=== PATIENT | male | born 1965 | race Caucasian/White ===

== ENCOUNTER → 2016-08-09 | Outpatient (CLI) | payer MEDICAID ==
[~2016-08-09] MED LIST: ASPIRIN 81MG TA81 MG PO; CELEXA20 MG PO; CIPRO 500MG TA500 MG PO; ETODOLAC400 MG PO; FLEXERIL10 MG PO; FLOMAX 0.4MG C0.4 MG PO; GABAPENTIN600 MG PO; HYDROCHLOROTHIA25 M1 PO; IBUPROFEN800 MG PO; LISINOPRIL 10MG10 MG PO; LISINOPRIL 20MG20 MG PO; PANTOPRAZOLE SO40 MG PO; PERCOCET 10 MG1 EACH PO; PERCOCET1 TAB PO; PHENERGAN25 M3 PO; TRAMADOL 50MG T50 M1 PO; ZANTAC 150150 MG PO; ZOCOR20 MG PO
[2016-08-09 17:21] LABS: AMPHETAMINES/METAMPHETAMINES NEGATIVE ng/mL (<1000)
== END ==
LOC: LAB 16:15
PROVIDERS: Emergency Medicine
DX: Z79.899 Other long term (current) drug therapy (principal)

== ENCOUNTER 2016-11-12 22:16 | Emergency (ER) | payer MEDICAID ==
[~2016-11-12] VITALS: Ht 185.4 cm; Wt 102.5 kg
[~2016-11-12 22:16] MED LIST changes: +LISINOPRIL HCTZ1 TAB PO; +NORCO 325 MG-51 TAB PO
[2016-11-12] MEDS ORDERED: LISINOPRIL 10MG10 MG PO (22:26)
--- OUTSIDE RECORDS SUMMARY | 2016-11-12 22:45 | External Medical Summary Rpt ---
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 Auto Basophi 03-27-2 0.3 % 0.1-2.0 complet ls Fr 013 ed Bld 06:10 Auto Granulo 03-27-2 6.4 1.3-8.0 complet cytes # 013 K/mm3 ed Bld 06:10 Auto Lymphoc 03-27-2 1.5 0.7-4.5 complet ytes Fr 013 K/mm3 ed Bld 06:10 Auto Monocyt 03-27-2 0.6 0.1-1.0 complet es # 013 K/mm3 ed Bld 06:10 Auto Eosinop 03-27-2 0.1 0.0-0.4 complet hil # 013 K/mm3 ed Bld 06:10 Auto Basophi 03-27-2 0.0 0-0.2 complet ls # 013 K/MM3 ed Bld 06:10 Auto URINALYSIS/COMPLETE (08-18-2012 17:55) URINE 03-26-2 YELLOW YELLOW complet COLOR 013 ed 17:55 URINE 03-26-2 Sl CLEAR complet APPEARA 013 Cloudy ed NCE 17:55 URINE 03-26-2 NEGATIV NEG complet GLUCOSE 013 E ed - 17:55 DIPSTIC K URINE 03-26-2 NEGATIV NEG complet BILIRUB 013 E ed IN - 17:55 DIPSTIC K URINE 03-26-2 NEGATIV NEG complet KETONE 013 E mg/dL ed 17:55 URINE 03-26-2 Greater 1.005-1 complet SPECIFI 013 than .030 ed C 17:55 or GRAVITY equal to 1.030 URINE 03-26-2 NEGATIV NEG complet BLOOD 013 E ed 17:55 URINE 03-26-2 6.0 UNK 5.0-8.5 complet PH 013 ed 17:55 URINE 03-26-2 TRACE NEG complet PROTEIN 013 mg/dL ed - 17:55 DIPSTIC K URINE 03-26-2 0.2 NEG complet UROBILI 013 E.U./dL ed NOGEN - 17:55 DIPSTIC K URINE NEGATIV NEG complet NITRATE 013 E ed - 17:55 DIPSTIC K URINE NEGATIV NEG complet LEUK 013 E ed ESTERAS 17:55 E URINE 2+ NONE complet CALCIUM 013 #/hpf ed 17:55 OXALATE CRYSTAL S COMPREHENSIVE METABOLIC PANEL (08-18-2012 17:45) Glucose 105 74-106 complet 013 mg/dL ed Bld-mCn 17:45 c BUN 14 7-18 complet Bld-mCn 013 mg/dL ed c 17:45 Creat 1.0 0.8-1.3 complet SerPl-m 013 mg/dL ed Cnc 17:45 ESTIMAT 130 50-200 complet ED 013 ML/MIN ed CREATIN 17:45 INE CLEARAN CE GFR 80 Greater complet (ESTIMA 013 ML/MIN than ed NOEL) 17:45 60 Sodium 141 136-145 complet SerPl-s 013 mmoL/L ed Cnc 17:45 Potassi 3.6 3.5-5.1 complet um 013 mmoL/L ed SerPl-s 17:45 Cnc Chlorid 104 98-107 complet e 013 mmoL/L ed SerPl-s 17:45 Cnc CO2 26 21.0-32 complet SerPl-s 013 mmoL/L .0 ed Cnc 17:45 Calcium 9.2 8.5-10. complet 013 mg/dL 1 ed SerPl-m 17:45 Cnc Prot 08-18-2 8.1 6.4-8.2 complet SerPl-m 013 gm/dL ed Cnc 17:45 Albumin 08-18-2 4.3 3.4-5.0 complet 013 gm/dL ed SerPl-m 17:45 Cnc Globuli 08-18-2 3.8 1.3-3.2 complet n 013 gm/dL ed Ser-mCn 17:45 c Albumin 1.1 UNK 1.1-1.8 complet /Glob 013 ed SerPl-m 17:45 Rto Bilirub 0.4 0.2-1.0 complet 013 mg/dL ed SerPl-m 17:45 Cnc AST 20 U/L 15-37 complet SerPl-c 013 ed Cnc 17:45 ALT 52 U/L 30-65 complet SerPl-c 013 ed Cnc 17:45 ALP 85 U/L 50-136 complet SerPl-c 013 ed Cnc 17:45 Amylase SerPl-cCnc (08-18-2012 17:45) Amylase 72 U/L 25-115 complet 013 ed SerPl-c 17:45 Cnc LIPASE (08-18-2012 17:45) LIPASE 351 U/L 73-393 complet 013 ed 17:45 PROTIME/INR (08-18-2012 17:45) PROTHRO 08-18-2 10.1 9.8-11. complet MBIN 013 SECONDS 0 ed TIME 17:45 INR Bld 0.97 0.9-1.1 complet 013 UNK ed 17:45 CBC with AUTO DIFF (08-18-2012 17:45) WBC # 08-18-2 12.7 4.8-10. complet Bld 013 K/MM3 8 ed Auto 17:45 RBC # 08-18-2 4.98 4.6-6.2 complet Bld 013 M/mm3 ed Auto 17:45 Hgb 08-18-2 15.5 14.1-18 complet Bld-mCn 013 g/dL .0 ed c 17:45 Hct Fr 45.9 % 42.0-52 complet Bld 013 .0 ed 17:45 MCV RBC 08-18-2 92.2 fl 82.2-97 complet 013 .8 ed 17:45 MCH RBC 08-18-2 31.2 pg 27-31.2 complet Qn 013 ed Auto 17:45 MEAN 33.8 31.8-35 complet CORPUSC 013 g/dl .4 ed ULAR 17:45 HGB CONC RDW RBC 08-18-2 13.5 % 11.5-17 complet Auto 013 .5 ed 17:45 Platele 330 142-424 complet t Bld 013 K/mm3 ed Ql 17:45 Manual MEAN 08-18-2 7.1 fl 7.4-10. complet PLATELE 013 4 ed T 17:45 VOLUME Granulo 03-26-2 76.9 % 37.0-80 complet cytes 013 .0 ed Fr Bld 17:45 Auto LYMPH % 03-26-2 16.6 % 10-50 complet 013 ed 17:45 Monocyt 03-26-2 4.9 % 1.7-9.3 complet es Fr 013 ed Bld 17:45 Auto Eosinop 03-26-2 1.2 % 0.1-12. complet hil Fr 013 0 ed Bld 17:45 Auto Basophi 03-26-2 0.4 % 0.1-2.0 complet ls Fr 013 ed Bld 17:45 Auto Granulo 03-26-2 9.8 1.3-8.0 complet cytes # 013 K/mm3 ed Bld 17:45 Auto Lymphoc 03-26-2 2.1 0.7-4.5 complet ytes Fr 013 K/mm3 ed Bld 17:45 Auto Monocyt 03-26-2 0.6 0.1-1.0 complet es # 013 K/mm3 ed Bld 17:45 Auto Eosinop 03-26-2 0.2 0.0-0.4 complet hil # 013 K/mm3 ed Bld 17:45 Auto Basophi 03-26-2 0.1 0-0.2 complet ls # 013 K/MM3 ed Bld 17:45 Auto Procedures Procedure DOS Code Location Performer Comment DRUG TEST 31560 [facility] QU[facility] DIR [facility] INC OPTICAL OBS PER DAY DRUG TEST 23443 BO [facility]V [facility] QUAL DIR INC INC OPTICAL OBS PER DAY MRI 94147 [place] [facility] SPINAL 7 MEDICAL CANAL IMAGING LUMBAR ASS W/O CONTRAST MATERIAL 3D 46515 [place] [facility] RENDERING 7 MEDICAL W/INTERP IMAGING & ASS POSTPROCE SS SUPERVISI ON DRUG TEST 84153 BO [facility]IAN[facility] PRSMV [facility] QUAL DIR INC INC OPTICAL OBS PER DAY DRUG TEST 80629 BO [facility] PRSMV 7 [facility] QUAL DIR INC INC OPTICAL OBS PER DAY DRUG TEST 62681 BO MYERSON PRSMV 7 [facility] QU[place] [address] TAB BARTH ABDOMEN & 6 [facility] PELVIS [facility] W/CONTRAS T MATERIAL LOCM Q9967 TAB BARTH 300-399 6 [facility] MG/ML [facility] IODINE CONCENTRA TION PER ML COLLECTIO 88383 TAB [facility]TH N VENOUS 6 [facility] VENIPUNCT URE BLOOD 23314 TAB BARTH COUNT 6 [facility] AUTOMATED PROSTATE G0103 [facility] [address] [place] [address] ; PSA TEST CULTURE 61225 LAB HANDY LAB HANDY BACTERIAL 6 [employer] QUANTTATI VE COLONY COUNT URINE HANDLG&/O 41911 YESSICA MARIO R CONVEY [address] [place] [address] URGENT FOR TR TREAT OFFICE TO LAB COMPREHEN 12151 BO SORIANO SIVE 6 [facility] METABOLIC INC INC PANEL CREATINE 65127 BO SORIANO KINASE 6 [facility] [place] [address] BO SORIANO MAGNESIUM 6 [facility] INC INC ECG 74817 BO SORIANO ROUTINE 6 [facility] ECG INC INC W/LEAST 12 LDS TRCG ONLY W/O I&R BLOOD 28237 BO SORIANO COUNT 6 [facility] COMPLETE INC INC AUTO&AUTO DIFRNTL WBC ECG 60854 BO BUENO [facility]INE [facility] W/LEAST P 12 LDS I&[place] [address] BO SORIANO TROPONIN 6 [facility] QUANTITAT INC INC SHEREE CREATINE 63715 BO SORIANO KINASE MB 6 [facility] FRACTION INC INC ONLY UNCLASSIF J3490 BO SORIANO IED DRUGS 6 [facility] INC INC UNCLASSIF J3490 BO SORIANO IED DRUGS 6 [place] [address] BO SORIANO INFUSION 6 [facility] THERAPY/P INC INC ROPHYLAXI S /DX 1ST TO 1 HR THERAPEUT 32648 BO SORIANO IC 6 [facility] INJECTION INC INC IV PUSH EACH NEW DRUG UNCLASSIF J3490 BO SORIANO IED DRUGS 6 [place] [address] BO SORIANO ABDOMEN & 6 [facility] PELVIS INC INC W/O CONTRAST MATERIAL COMPREHEN 74824 BO SORIANO SIVE 6 [facility] METABOLIC INC INC PANEL INJECTION J2405 BO SORIANO 6 [facility] ONDANSETR INC INC ON HCL PER 1 MG URNLS DIP 29072 BO SORIANO 6 [facility] STICK/TAB INC INC LET REAGENT AUTO MICROSCOP Y BLOOD 04564 BOADITI SORIANO COUNT 6 [facility] COMPLETE INC INC AUTO&[place] [address] BO BO LIPASE 6 [facility] INC INC CULTURE 11855 LAB HANDY LAB HANDY BACTERIAL 6 [facility] [place] [address] [place] EXTREMITY 6 RADIOLOGY RHO NON-VASC REAL-TIME IMG LMTD COMPREHEN 44312 BO SORIANO SIVE 6 [facility] METABOLIC INC INC PANEL UNCLASSIF J3490 BO SORIANO IED DRUGS 6 [facility] INC INC THERAPEUT 16407 BO SORIANO IC 6 [facility] PROPHYLAC INC INC TIC/DX INJECTION SUBQ/IM BLOOD 66819 BO MYERSON COUNT 6 [facility] COMPLETE INC INC AUTO&AUTO DIFRNTL WBC FIBRIN 49999 BO SORIANO DGRADJ 6 [facility] PRODUCTS INC INC D-DIMER QUAL/SEMI MARIE THERAPEUT 02724 BO SORIANO IC PX 1/> 6 [facility] AREAS INC INC EACH 15 MIN EXERCISES APPL 39009 BO SORIANO MODALITY 6 [facility] 1/> AREAS INC INC ELEC STIMJ UNATTENDE D APPL 43072 BO SORIANO MODALITY 6 [facility] 1/> AREAS INC INC ULTRASOUN D EA 15 MIN APPL 02592 BO SORIANO MODALITY 6 [facility] 1/> AREAS INC INC TRACTION MECHANICA L THERAPEUT 28479 BO SORIANO IC PX 1/> 6 [facility] AREAS INC INC EACH 15 MIN EXERCISES THERAPEUT 94708 BO SORIANO IC PX 1/> 6 [facility] AREAS INC INC EACH 15 MIN EXERCISES APPL 31254 BO SORIANO MODALITY 6 [facility] 1/> AREAS INC INC ELEC STIMJ UNATTENDE D APPL 28513 BO SORIANO MODALITY 6 [facility] 1/> AREAS INC INC ULTRASOUN D EA 15 MIN THERAPEUT 37248 BO SORIANO IC PX 1/> 6 [facility] AREAS INC INC EACH 15 MIN EXERCISES PHYSICAL 49337 BO SORIANO THERAPY 6 [facility] [place] [address] [place] SCALF AVILA ABDOMEN & 5 RADIOLOGY PELVIS W/[place] [address] TAB [place] ABDOMEN & 5 [facility] W/O CONTRAST MATERIAL THERAPEUT 05960 TAB [place] IC 5 [facility] [place] [address] [place] INFUSION 5 [facility] ROPHYLAXI S /DX 1ST TO 1 HR COLLECTIO 40152 TOMASADITI T[place]AS[place] N VENOUS 5 [facility] VENIPUNCT URE DUP-SCAN 61316 KRISTOFER GRAFF GRAFF KRISTOFER XTR VEINS 5 [facility] G SRV BILATERAL STUDY DUP-SCAN 47692 [facility] [facility] XTR VEINS 5 [facility] BILATERAL STUDY THERAPEUT 19181 [place] IC 5 [facility] TIC/DX INJECTION SUBQ/IM CULTURE 05770 LAB HANDY LAB HANDY BACTERIAL 5 [facility] QUANTTATI VE COLONY COUNT URINE SUSCEPTIB 52260 LAB HANDY LAB HANDY LTY STDY 5 [facility] ANTIMICRB [facility]INGS IAL MICRO/AGA R DILUTJ CUL BACT 68747 LAB HANDY LAB HANDY AEROBIC 5 [facility] ADDL [facility]INGS METHS DEFINITIV E EA ISOL CULTURE 30736 LAB HANDY LAB HANDY BCT 5 [facility] ISOL&PRSM [facility]INGS PTV [place] [address] [facility] SPINAL 5 [facility] LUMBAR W/O CONTRAST MATERIAL RADIOLOGI 32905 [facility] C 5 [facility] ON KNEE 3 VIEWS THERAPEUT 71407 BO SORIANO IC PX 1/> 5 [facility] AREAS INC INC EACH 15 MIN EXERCISES E-STIM G0283 BO SORIANO 1/> AREAS 5 [facility] OTH THAN INC INC WND CARE PART TX PLAN THERAPEUT 82091 BO SORIANO IC PX 1/> 5 [facility] AREAS INC INC EACH 15 MIN EXERCISES APPL 00869 BO SORIANO MODALITY 5 [facility] 1/> AREAS INC INC ULTRASOUN D EA 15 MIN APPL 45137 BO SORIANO MODALITY 5 [facility] 1/> AREAS INC INC TRACTION MECHANICA L APPLICATI 40371 BO SORIANO ON 5 [facility] MODALITY INC INC 1/> AREAS HOT/COLD PACKS APPLICATI 64481 BO SORIANO ON 5 [facility] MODALITY INC INC 1/> AREAS HOT/COLD PACKS APPL 14307 BO SORIANO MODALITY 5 [facility] 1/> AREAS INC INC ULTRASOUN D EA 15 MIN THERAPEUT 49273 BO SORIANO IC PX 1/> 5 [facility] AREAS INC INC EACH 15 MIN EXERCISES E-STIM G0283 BO SORIANO 1/> AREAS 5 [facility] OTH THAN INC INC WND CARE PART TX PLAN THERAPEUT 82483 BO SORIANO IC PX 1/> 5 [facility] AREAS INC INC EACH 15 MIN EXERCISES APPL 58408 BO SORIANO MODALITY 5 [facility] 1/> AREAS INC INC ULTRASOUN D EA 15 MIN APPL 59677 BO SORIANO MODALITY 5 [facility] 1/> AREAS INC INC TRACTION MECHANICA L APPL 36379 BO SORIANO MODALITY 5 [facility] 1/> AREAS INC INC TRACTION MECHANICA L APPL 44544 BO SORIANO MODALITY 5 [facility] 1/> AREAS INC INC ULTRASOUN D EA 15 MIN THERAPEUT 50848 BO SORIANO IC PX 1/> 5 [facility] AREAS INC INC EACH 15 MIN EXERCISES PHYSICAL 32984 BO SORIANO THERAPY 5 [facility] EVALUATIO INC INC N THERAPEUT 28578 YESSICA FABIANO IC 5 [facility] PROPHYLAC URGENT TIC/DX TREAT INJECTION SUBQ/IM INJECTION J3301 YESSICA MARIO 5 [facility] TRIAMCINO URGENT LONE TREAT ACETONIDE NOS 10 MG PHYSICAL 21505 BO SORIANO THERAPY 5 [facility] EVALUATIO INC INC N RADEX 54543 [place] RADMANESH SPINE 5 RADIOLOGY SHA CERVICAL 2 OR 3 VIEWS BONE 73382 [place] RONALD MAT &/JOINT 5 RADIOLOGY IMAGING 3 PHASE STUDY TECHNETIU A9503 [facility] TC-99M 5 [facility] DX UP TO 30 MCI RADEX 95100 [facility] FOOT 4 [facility] MINIMUM 3 VIEWS DUP-SCAN 96971 [facility] XTR VEINS 4 [facility] UNILATERA [place] [address] [facility] BLOOD/URI [address] [place] [address] C ACID BLOOD [address] COMPLETE AUTOMATED COMPREHEN [address] METABOLIC PANEL OBSERVATI 74892 [facility] ON CARE 4 [place] HUG DISCHARGE PHYSICIAN SERVI MANAGEMEN T SBSQ 11237 [facility] OBSERVATI 4 [place] HUG ON PHYSICIAN CARE/DAY SERVI 15 MINUTES INITIAL 08407 [facility] OBSERVATI 4 [place] ON PHYSICIAN CARE/DAY SERVI 30 MINUTES ANES 09871 [facility] INTRAPERI 4 I JR EDW I JR EDW TONEAL UPPER ABDOMEN W/LAPS NOS LEVEL III 19342 FARAH FARAH SURG 4 AIVLA [facility] PATHOLOGY GROSS&SHELBY ROSCOPIC EXAM AMBULANCE A0428 [facility] SERVICE 4 [facility] NC TRANSPORT GROUND A0425 [facility] MILEAGE 4 [facility] STATUTE EMS EMS [facility] 113[address] [facility] REGLA DISCHARGE 4 [place] ISAAC IGN DAY PHYSICIAN MANAGEMEN SERVI T > 30 MIN RADIOLOGI 20593 [facility] SCALF AVILA C 4 EXAMINATI ON CHEST SINGLE VIEW FRONTAL INITIAL 42958 [facility] OBSERVATI 4 [place] STEVEN ON PHYSICIAN CARE/DAY SERVI 70 MINUTES SBSQ 96591 [facility] OBSERVATI 4 [place] ON PHYSICIAN PHYSICIAN CARE/DAY SERVI SERVI 35 MINUTES HEPATOBIL 83786 [facility] SCALF AVILA SYST 4 IMAG INC GB W/[place] [address] [place] NILSON ABDOMEN & 4 RHO RHO PELVIS W/CONTRAS T MATERIAL ECG 58551 [facility] ROUTINE 4 TEX TEX ECG W/LEAST 12 LDS I&R ONLY INJECTION J2270 [place] [address] Y [facility] UP TO 10 MG ECG 85093 [facility] ROUTINE 4 [place] TEX ECG EMERGENCY W/LEAST PHYSI 12 LDS I&R ONLY BLOOD 28890 [facility] COUNT 4 [facility] AUTO&AUTO DIFRNTL WBC INFUSION J7030 TAB [place] NORMAL [address] [place] [address] SOLUTION 1000 CC INJECTION J2405 [place] [address] Y [facility] ON HCL PER 1 [place] [address] TAB [place] LIPASE [address] [place] [address] GROUND A0425 [facility] MILEAGE 4 [facility] STATUTE EMS EMS MILE LIPID 21810 [facility] PANEL 4 Y Y HOSPITAL HOSPITAL URNLS DIP 01286 [facility] 4 [facility] STICK/TAB HOSPITAL HOSPITAL LET REAGENT AUTO MICROSCOP Y THERAPEUT 62430 [facility] IC 4 [facility] INJECTION HOSPITAL HOSPITAL [place] [address] [facility] ABDOMINAL [address] [place] [address] [facility] HOSPITAL TIME W/IMAGE LIMITED THER 69921 [facility] PROPH/DX 4 [facility] NJX IV HOSPITAL HOSPITAL PUSH SINGLE/1S T SBST/[place] [address] [facility] INFUSION [address] [place] [address] [facility] HOSPITAL EACH ADDITIONA L HOUR COMPREHEN 62802 [facility] SIVE [address] [place] [address] HOSPITAL PANEL AMB A0427 [facility] SERVICE 4 [facility] EMERGENCY EMS EMS TRANSPORT LEVEL 1 TU REMOV 56.0 Thomas URETER Mando OBSTROMAIRA DON URETERAL 59.8 Thomas CATHETERI Mando CHAWLA MD URETEROSC 56.31 Thomas Gilmore MD Encounters Encounter Start End Date Code Location Performer Type Date OFFICE 49294 [facility] CARLEEN OUTPATIEN 7 7 PHYSICIAN T VISIT S GROUP 15 MINUTES OFFICE 44584 BO OUTPATIEN 7 7 [facility] T VISIT INC 10 MINUTES OFFICE 16839 [facility] CARLEEN OUTPATIEN 7 7 PHYSICIAN T VISIT S GROUP 25 MINUTES HOSPITAL BO - 7 7 [facility] OUTPATIEN INC T OFFICE 43103 MIKEY LUNDY OUTPATIEN 7 7 MD LEIGH ANN, T NEW 30 PSC MINUTES OFFICE 66638 [facility] CARLEEN OUTPATIEN 7 7 PHYSICIAN T VISIT S GROUP 25 MINUTES HOSPITAL BO - 7 7 [facility] T [facility] BO - 7 7 [facility] T OFFICE 34337 [facility] 7 PHYSICIAN T VISIT S GROUP 25 MINUTES HOSPITAL BO - 7 7 [facility]PATI[facility] INC T H[facility]PITAL BO - 7 7 [facility] OUTPATIEN INC T OFFICE 33849 [facility] 7 7 PHYSICIAN T VISIT S GROUP 25 MINUTES OFFICE 64043 [facility] DALIA OUTPATIEN 7 7 PHYSICIAN T NEW 20 S GROUP MINUTES OFFICE 41702 [facility] OUT[facility] 7 7 PHYSICIAN T NEW 20 S GROUP MINUTES HOSPITAL BO - 7 7 [facility] OUTPATIEN INC T OFFICE 46682 YESSICA FABIANO [facility] 6 6 [facility] T VISIT URGENT 25 TREAT MINUTES OFFICE 02030 YESSICA HUNTER [facility] 6 6 [facility] T VISIT URGENT 15 TREAT MINUTES HOSPITAL WAVERLY - 6 6 [facility] 6 6 [facility] T OFFICE 86102 YESSICA MARIO [facility] 6 6 [facility] T VISIT URGENT 25 TREAT MINUTES OFFICE 91409 YESSICA MARIO [facility] 6 6 [facility] T VISIT URGENT 25 TREAT MINUTES EMERGENCY 81634 BO 6 6 [facility] DEPARTMEN INC T VISIT MODERATE SEVERITY HOSPITAL BO - 6 6 [facility] OUTPATIEN INC T EMERGENCY 55427 JAMA ELMORE [facility] 6 6 PHYSICIAN DEPARTMEN S, PLLC T VISIT HIGH/URGE NT SEVERITY OFFICE 00357 [facility] 6 [facility] T VISIT URGENT 25 TREAT MINUTES HOSPITAL BO - 6 6 [facility] OUTPATIEN INC T EMERGENCY 44114 BO 6 6 [facility] DEPARTMEN INC T VISIT LOW/MODER SEVERITY EMERGENCY 23441 JAMA ETIENNE 6 6 PHYSICIAN MADI DEPARTMEN [facility] T VISIT MODERATE SEVERITY EMERGENCY 50249 JAMA VASQUEZ DEPT 6 6 PHYSICIAN MADI VISIT [facility] HIGH SEVERITY& THREAT [facility] BO - 6 6 [facility] OUTPATIEN INC T EMERGENCY 36206 BO 6 6 [facility] DEPARTMEN INC T VISIT MODERATE SEVERITY HOSPITAL BO - 6 6 [facility] OUTPATIEN INC T EMERGENCY 09528 JAMA DURANT 6 6 [facility] T VISIT HIGH/URGE NT SEVERITY EMERGENCY 87805 BO 6 6 [facility] DEPARTMEN INC T VISIT MODERATE SEVERITY HOSPITAL BO - 6 6 [facility] OUTPATIEN INC T OFFICE 97789 MIKEY MAYBERRY OUTPATIEN 6 6 MD LEIGH ANN, T VISIT PSC 15 MINUTES OFFICE 58815 BO OUTPATIEN 6 6 [facility] T VISIT INC 10 MINUTES HOSPITAL BO - 6 6 [facility] OUTPATIEN INC T OFFICE 03530 BO OUTPATIEN 6 6 [facility] T VISIT INC 10 MINUTES HOSPITAL BO - 6 6 [facility] OUTPATIEN INC T OFFICE 98354 MIKEY DUQUE OUTPATIEN 6 6 MD LEIGH ANN, T VISIT PSC 15 MINUTES OFFICE 72722 YESSICA STEELEPATIEN 5 5 [facility] T VISIT URGENT 25 TREAT MINUTES EMERGENCY 83269 [facility] BO DEPT 5 5 [facility] VISIT EMERGENCY HIGH PHYS SEVERITY& THREAT [facility] BO - 5 5 [facility] OUTPATIEN INC T OFFICE 98640 [facility]KEY [facility] 5 5 MD LEIGH ANN, T NEW 30 PSC MINUTES OFFICE 85957 BO OUTPATIEN 5 5 [facility] T VISIT INC 10 MINUTES OFFICE 39003 YESSICA FABIANO OUTPATIEN 5 5 [facility] T VISIT URGENT 15 TREAT MINUTES OFFICE 57855 [facility] 5 5 [facility] T VISIT URGENT 25 TREAT MINUTES OFFICE 20733 [facility] 5 5 Y T VISIT 5 [facility] UNIV[facility] - 5 5 Y [facility] T OFFICE 08330 [facility] 5 5 [place] LEANN NILE PHYSICIAN NEW/ESTAB S ASSIST PATIENT 40 MIN EMERGENCY 63991 [facility] 5 5 [facility] T VISIT [facility]IGH/URGE NT SEVERITY [facility] EMERGENCY [id number] [place] [facility] 5 5 [place] VISIT EMERGENCY HIGH PHYS SEVERITY& THREAT [facility] OFF[facility] 15431 YESSICA HUNTER [facility] 5 5 [facility] T VISIT URGENT 15 TREAT MINUTES OFFICE [id number] YESSICA MARIO [facility] 5 5 [facility] T VISIT [facility]RGENT 25 TREAT MINUTES [facility] 5 [facility] EM[facility] 30586 [facility] 5 5 [place] [facility] EMERGENCY PAT T VISIT PHYS HIGH/URGE NT [facility]VERITY [facility] 5 5 [facility] [place] - 5 5 [facility] 20149 YESSICA STEELEPATIEN 5 5 [facility] T VISIT URGENT 25 TREAT MINUTES OFFICE [id number] YESSICA STEELEPATIEN 5 5 [facility] T VISIT URGENT 25 TREAT MINUTES HOSPITAL BO - 5 5 [facility] OUTPATIEN INC T HOSPITAL BO [facility] 5 5 [facility] OUTPATIEN INC T OFFICE 06060 YESSICA MARIO [facility] 5 5 [facility] T VISIT URGENT 25 TREAT MINUTES OFFICE 94422 YESSICA MARIO [facility] 5 5 [facility] T VISIT URGENT 25 TREAT MINUTES OFFICE [id number] [facility] 5 5 [facility] T VISIT URGENT 25 TREAT MINUTES OFFICE 12462 YESSICA STEELEPATIEN 5 5 [facility] T VISIT URGENT 15 TREAT MINUTES HOSPITAL BO - 5 5 [facility] OUTPATIEN [facility] T OFFICE 44280 [facility] 5 5 ADULT NANCI T VISIT PRIMARY 15 CARE [facility] - [address] [facility] T OFFICE 18738 MEANS [facility] OUTPATIEN 4 4 ADULT NANCI T VISIT PRIMARY [address] [facility] - [address] [facility] T OFFICE 51413 [facility] OUTPATIEN 4 4 ADULT NANCI T VISIT PRIMARY 15 CARE [facility] - OTHER 4 4 [facility] UN[facility]ERSIT - 4 4 [facility] T OFFICE 61909 [facility] 4 4 Y T VISIT 5 HOSPITAL MINUTES OFFICE 96106 V[facility]Z [facility] OUTPATIEN 4 4 JAM JAM T VISIT 15 [facility] [place] [facility] 4 [facility] EMERGENCY 32497 TY [facility] DEPT 4 4 TEX TEX VISIT HIGH SEVERITY& THREAT [facility] - 4 4 Y [facility] T EMERGENCY 49967 KIRSTIN FOSTER 4 4 [facility] T VISIT HIGH/URGE NT SEVERITY EMERGENCY 73072 TAB DEPT 4 4 [facility] VISIT [facility]OSPITAL HIGH SEVERITY& THREAT [facility] OFFICE 29988 [facility] 4 4 Y T VISIT [address] [facility] UNIVERSIT - 4 4 Y [facility] T OFFICE 15037 JAGUAR MONTESINOS [facility] 4 4 KELSY TIERNEY T VISIT 15 [facility] UNIVERSIT - 4 4 Y [facility] T OFFICE 83926 [facility] 4 4 Y T VISIT 5 [facility] Inpatient SHALINI Salinas MD (IN) 3 18:09 3 15:58 [facility]
--- OUTSIDE RECORDS SUMMARY | 2016-11-12 22:45 | External Medical Summary Rpt ---
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 GROUP 25 MINUTES HOSPITAL BO - 7 7 [facility] OUTPATIEN INC T HOSPITAL BO - 7 7 [facility] OUTPATIEN INC T OFFICE 57693 [facility] OUT[facility] 7 7 PHYSICIAN T VISIT S GROUP 25 MINUTES OFFICE 18069 [facility] DALIA OUTPATIEN 7 7 PHYSICIAN T NEW 20 S GROUP MINUTES OFFICE 12694 [facility] OUTPATI[facility] 7 7 PHYSICIAN T NEW 20 S GROUP MINUTES HOSPITAL BO - 7 7 [facility] OUTPATIEN INC T OFFICE 63528 YESSICA FABIANO [facility] 6 6 [facility] T VISIT URGENT 25 TREAT MINUTES OFFICE 93029 YESSICA HUNTER [facility] 6 6 [facility] T VISIT URGENT 15 TREAT MINUTES HOSPITAL [facility] - 6 6 [facility] 6 6 [facility] T OFFICE 92802 YESSICA MARIO [facility] 6 6 [facility] T VISIT URGENT 25 TREAT MINUTES OFFICE 82657 YESSICA MARIO [facility] 6 6 [facility] T VISIT URGENT 25 TREAT MINUTES EMERGENCY 64831 BO 6 6 MEM H[facility] DEPARTMEN INC T VISIT MODERATE SEVERITY HOSPITAL BO - 6 6 [facility] OUTPATIEN INC T EMERGENCY 27167 JAMA ELMORE [facility] 6 6 PHYSICIAN DEPARTMEN S, PLLC T VISIT HIGH/URGE NT SEVERITY OFFICE 47644 [facility] 6 6 [facility] T VISIT URGENT 25 TREAT MINUTES HOSPITAL BO - 6 6 [facility] OUTPATIEN INC T EMERGENCY 07502 BO 6 6 [facility] DEPARTMEN INC T VISIT LOW/MODER SEVERITY EMERGENCY 61566 JAMA ETIENNE 6 6 PHYSICIAN MADI DEPARTMEN [facility] T VISIT MODERATE SEVERITY EMERGENCY 44004 JAMA VASQUEZ DEPT 6 6 PHYSICIAN MADI VISIT [facility] HIGH SEVERITY& THREAT [facility] BO - 6 6 [facility] OUTPATIEN INC T EMERGENCY 28391 BO 6 6 MEM H[facility]P DEPARTMEN INC T VISIT MODERATE SEVERITY HOSPITAL BO - 6 6 [facility] OUTPATIEN INC T EMERGENCY 55574 JAMA DURANT 6 6 [facility] HIGH/URGE NT SEVERITY EMERGENCY 02782 BO 6 6 MEM H[facility] DEPARTMEN INC T VISIT MODERATE SEVERITY HOSPITAL BO - 6 6 [facility] OUTPATIEN INC T OFFICE 61020 MIKEY MAYBERRY OUTPATIEN 6 6 MD LEIGH ANN, T VISIT PSC 15 MINUTES OFFICE 46151 BO OUTPATIEN 6 6 [facility] T VISIT INC 10 MINUTES HOSPITAL BO - 6 6 [facility] OUTPATIEN INC T OFFICE 63327 BO OUTPATIEN 6 6 [facility] T VISIT INC 10 MINUTES HOSPITAL BO - 6 6 [facility] OUTPATIEN INC T OFFICE 69619 MIKEY DUQUE OUTPATIEN 6 6 MD LEIGH ANN, T VISIT PSC 15 MINUTES OFFICE 99143 YESSICA STEELEPATIEN 5 5 [facility] T VISIT URGENT 25 TREAT MINUTES EMERGENCY 43624 [facility] BO DEPT 5 5 [place] SCO VISIT EMERGENCY HIGH PHYS SEVERITY& THREAT [facility] BO - 5 5 [facility] OUTPATIEN INC T OFFICE 78783 [facility]KEY [facility] 5 MD LEIGH ANN, T NEW 30 PSC MINUTES OFFICE 83132 BO OUTPATIEN 5 5 MEM [facility]OS[facility] T VISIT INC 10 MINUTES OFFICE 62459 YESSICA FABIANO OUTPATIEN 5 5 [facility] T VISIT URGENT 15 TREAT MINUTES OFFICE 34526 [facility] 5 5 [facility] T VISIT URGENT 25 TREAT MINUTES OFFICE 92210 [facility] 5 5 Y T VISIT 5 H[facility]PITAL [facility] UNIVERS - 5 5 [facility] OFF[facility] 99138 [facility] 5 5 [place] LEANN NILE PHYSICIAN NEW/ESTAB S ASSIST PATIENT 40 MIN EMERGENCY 33231 [facility] 5 5 [facility] T VISIT HIGH/URGE NT SEVERITY [facility] 5 [facility] EMERGENCY 33342 [facility] DEPT 5 5 [place] VISIT EMERGENCY HIGH PHYS SEVERITY& THREAT [facility] 5 [facility] T OFFICE 90954 [facility] 5 5 [facility] T VISIT URGENT 15 TREAT MINUTES OFFICE 33195 [facility] 5 5 [facility] T VISIT URGENT 25 TREAT MINUTES [facility] EMERGENC[facility] 11544 [facility] 5 5 [place] [facility] EMER[facility] PAT T VISIT PHYS HIGH/URGE NT SEVERITY [facility] - 5 5 [facility] T OFFICE 36586 YESSICA STEELEPATIEN 5 5 [facility] T VISIT URGENT 25 TREAT MINUTES OFFICE 62513 YESSICA STEELEPATIEN 5 5 [facility] T VISIT URGENT 25 TREAT MINUTES HOSPITAL BO - 5 5 [facility] OUTPATIEN INC T HOSPITAL BO - 5 5 [facility] OUTPATIEN INC T OFFICE 84370 [facility] 5 5 [facility] T VISIT URGENT 25 TREAT MINUTES OFFICE 73006 YESSICA MARIO [facility] 5 5 [facility] T VISIT URGENT 25 TREAT MINUTES OFFICE 14789 [facility] 5 5 [facility] T VISIT URGENT 25 TREAT MINUTES OFFICE 82784 YESSICA STEELEPATIEN 5 5 [facility] T VISIT URGENT 15 TREAT MINUTES HOSPITAL BO - 5 5 [facility] OUTPATIEN [facility] T OFFICE 17956 [facility] 5 5 ADULT NANCI T VISIT PRIMARY 15 [facility] - 5 5 [facility] T OFFICE 64366 [facility] OUTPATIEN 4 4 ADULT NANCI T VISIT PRIMARY [facility] - 4 4 [facility] T OFFICE 34640 [facility] OUTPATIEN 4 4 ADULT NANCI T VISIT PRIMARY 15 [facility] OTHER 4 4 [facility] UNIVERSIT - 4 4 [facility] T OFFICE 92767 [facility] 4 4 Y T VISIT 5 HOSPITAL MINUTES OFFICE 97091 [facility] OUTPATIEN 4 4 JAM JAM T VISIT 15 [facility] [place] - 4 4 [facility] EMERGENCY 96555 TY [facility] DEPT 4 4 TEX TEX VISIT HIGH SEVERITY& THREAT [facility] - 4 4 [facility] EMERGENC[facility] 99743 KRISTIN FOSTER 4 4 [facility] T VISIT HIGH/URGE NT SEVERITY EMERGENCY 47365 TAB DEPT 4 4 COMMUNITY VISIT HOSPITAL HIGH SEVERITY& THREAT [facility] OFFICE 94254 [facility] 4 4 Y T VISIT 5 [facility] - 4 4 [facility] OFF[facility] 40716 JAGUAR [facility]INOS [facility] 4 4 KELSY TIERNEY T VISIT 15 [facility] - 4 4 [facility] 52976 [facility] 4 4 Y T VISIT 5 [facility] Inpatient SHALINI Salinas MD (IN) 3 18:09 3 15:58 [facility]
--- OUTSIDE RECORDS SUMMARY | 2016-11-12 22:50 | External Medical Summary Rpt ---
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 7 [facility] OUTPATIEN INC T OFFICE 42241 [facility] OUTPATIEN 7 7 PHYSICIAN T VISIT S GROUP 25 MINUTES HOSPITAL BO - 7 7 [facility] OUTPATIEN INC T OFFICE 31495 [facility] OUTPATIEN 7 7 PHYSICIAN T VISIT S GROUP 25 MINUTES HOSPITAL BO - 7 7 [facility] OUTPATIEN INC HOSPITAL BO - 7 7 [facility] OUTPATIEN INC T OFFICE 52736 [facility] CAR[facility]EN OUTPATIEN 7 7 PHYSICIAN T VISIT S GROUP 25 MINUTES OFFICE 56976 [facility] ALLRAN JR OUTPATIEN 7 7 PHYSICIAN T NEW 20 S GROUP MINUTES OFFICE 73631 [facility] OUTPATIEN 7 7 PHYSICIAN T NEW 20 S GROUP MINUTES HOSPITAL BO - 7 7 [facility] OUTPATIEN INC T OFFICE 01252 YESSICA MARIO OUTPATIEN 6 6 [facility] T VISIT URGENT 25 TREAT MINUTES OFFICE 53292 YESSICA MARIO OUT[address] T VISIT URGENT 15 TREAT MINUTES [facility] [place] [address] 6 [facility] [place] [address] 6 [facility] T OFFICE 81661 [facility] 6 6 [facility] T VISIT URGENT 25 TREAT MINUTES OFFICE 69821 YESSICA FABIANO OUTPATIEN 6 6 [facility] T VISIT URGENT 25 TREAT MINUTES HOSPITAL BO - 6 6 [facility] OUTPATIEN INC T EMERGENCY 24199 JAMA OROSCO 6 6 PHYSICIAN IRENA [facility] T VISIT HIGH/URGE NT SEVERITY EMERGENCY 08693 BO 6 6 MEM [facility] DEPARTMEN INC T VISIT MODERATE SEVERITY OFFICE 81065 YESSICA MARIO OUTPATIEN 6 6 [facility] T VISIT URGENT 25 TREAT MINUTES EMERGENCY 34227 BO 6 6 [facility] DEPARTMEN INC T VISIT LOW/MODER SEVERITY EMERGENCY 42279 JAMA ETIENNE 6 6 PHYSICIAN MADI [facility] T VISIT MODERATE SEVERITY HOSPITAL BO - 6 6 [facility] OUTPATIEN INC T EMERGENCY 49857 BO 6 6 [facility] DEPARTMEN INC T VISIT MODERATE SEVERITY HOSPITAL BO - 6 6 [facility] OUTPATIEN INC T EMERGENCY 28691 JAMA ETIENNE DEPT 6 6 PHYSICIAN MADI [facility] HIGH SEVERITY& THREAT [facility] H[facility] BO - 6 6 [facility] OUTPATIEN INC T EMERGENCY 59812 BO 6 6 [facility] DEPARTMEN INC T VISIT MODERATE SEVERITY EMERGENCY 97662 JAMA DURANT 6 6 PHYSICIAN [facility] T VISIT HIGH/URGE NT SEVERITY HOSPITAL BO - 6 6 [facility] OUTPATIEN INC T OFFICE 75743 [facility] 6 6 MD LEIGH ANN, T VISIT PSC 15 MINUTES OFFICE 44021 BO GUERRERO 6 6 [facility] T VISIT INC 10 MINUTES HOSPITAL BO - 6 6 [facility] OUTPATIEN INC T OFFICE 83619 MIKEY DUQUE OUTPATIEN 6 6 MD LEIGH ANN, T VISIT PSC 15 MINUTES [facility] BO - 6 6 [facility]OS[facility] OUTPATIEN INC T OFFICE 52152 BO OUTPATIEN 6 6 MEM [facility]OS[facility] T VISIT INC 10 MINUTES OFFICE 12143 [facility] T VISIT URGENT 25 TREAT MINUTES EMERGENCY 21273 [facility] DE[facility] 5 5 [place] SCO VISIT EMERGENCY HIGH PHYS SEVERITY& THREAT [facility] BO - 5 5 [facility] OUTPATIEN INC T OFFICE 54854 [facility] V[facility] INC 10 MINUTES OFFICE 07656 MIKEY DUQUE OUTPATIEN 5 5 MD LEIGH ANN, T NEW 30 PSC MINUTES OFFICE 73697 [facility] T VISIT URGENT 15 TREAT MINUTES OFFICE 94076 YESSICA FABIANO [facility] 5 5 [facility] T VISIT URGENT 25 TREAT MINUTES [facility] - 5 5 Y [facility] T OFFICE 55519 [facility] CONSULT 5 5 [place] LEANN ION PHYSICIAN NEW/ESTAB S ASSIST PATIENT 40 MIN OFFICE 13440 [facility] 5 5 Y T VISIT 5 HOSPITAL MINUTES EMERGENCY [address] [place] [address] [facility] T VISIT [facility]IGH/URGE NT SEVERITY [facility] 5 [facility] T EMERGENCY 98919 [facility] DEPT 5 5 [place] VISIT EMERGENCY HIGH PHYS SEVERITY& THREAT [facility] 5 [facility] T OFFICE 25901 YESSICA STEELEPATIEN 5 5 [facility] T VISIT URGENT 15 TREAT MINUTES OFFICE 20944 [facility] 5 [facility] T VISIT URGENT 25 TREAT MINUTES [facility] [place] - 5 5 [facility] T EMERGENCY 22810 [facility] CELLARO 5 5 [facility] EMERGENCY PAT T VISIT PHYS HIGH/URGE NT SEVERITY [facility] [place] - 5 5 [facility] [place] - 5 5 [facility] T OFFICE 54757 [facility] 5 5 [facility] T VISIT URGENT 25 TREAT MINUTES OFFICE 35302 [facility] 5 [facility] T VISIT URGENT 25 TREAT MINUTES HOSPITAL BO - 5 5 [facility] OUTPATIEN INC T HOSPITAL BO - 5 5 [facility] OUTPATIEN [facility] T OFFICE 22258 [facility] T VISIT URGENT 25 TREAT MINUTES OFFICE 59866 YESSICA STEELEPATIEN 5 5 [facility] T VISIT URGENT 25 TREAT MINUTES OFFICE 51029 YESSICA MARIO OUTPATIEN 5 5 [facility] T VISIT URGENT 25 TREAT MINUTES OFFICE 46583 YESSICA STEELEPATIEN 5 5 [facility] T VISIT URGENT 15 TREAT MINUTES HOSPITAL BO - 5 5 [facility] OUTPATIEN INC T OFFICE 09109 [facility] OUT[facility] 5 5 ADULT NANCI T VISIT PRIMARY 15 CARE CLI MINUTES [facility] - 5 5 [facility] T OFFICE 03287 [facility] OUTPATIEN 4 4 ADULT NANCI T VISIT PRIMARY 25 CARE CLI [facility] - 4 4 [facility] ELVA T OFFICE 51931 [facility] OUTPATIEN 4 4 ADULT NANCI T VISIT PRIMARY 15 CARE CLI MINUTES [facility] - OTHER 4 4 HOSPITAL OFFICE 99308 [facility] OUT[facility] 4 4 Y T VISIT 5 HOSPITAL MINUTES OFFICE 14958 [facility] OUTPATIEN 4 4 JAM JAM T VISIT 15 MINUTES HOSPITAL [facility] - 4 4 Y [facility] [place] - 4 4 [facility] EMERGENCY 35648 [facility] DEPT 4 4 TEX TEX VISIT HIGH SEVERITY& THREAT [facility] EMERGENCY 03004 [facility] 4 4 Y [facility] T VISIT HIGH/URGE NT SEVERITY [facility] UNIVERSIT - 4 4 Y [facility] T EMERGENCY 90533 [facility] DEPT 4 4 [place] TEX VISIT EMERGENCY HIGH PHYSI SEVERITY& THREAT [facility] UNIVERSIT - 4 4 Y [facility] T OFFICE 02007 [facility] OUTPATIEN 4 4 Y T VISIT 5 HOSPITAL MINUTES OFFICE 21158 [facility] 4 4 [facility] T VISIT 15 MINUTES HOSPITAL [facility] - 4 4 Y [facility] T OFF[facility] 32057 [facility] OUTPAT[facility]EN 4 4 Y T VISIT 5 HOSPITAL MINUTES
--- OUTSIDE RECORDS SUMMARY | 2016-11-12 22:50 | External Medical Summary Rpt ---
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 [facility] T VISIT URGENT 25 TREAT MINUTES OFFICE [address] T VISIT URGENT 15 TREAT MINUTES HOSPITAL [place] [address] 6 [facility] [place] [address] 6 [facility] T OFFICE 12083 YESSICA MAR[facility] 6 6 [facility] T VISIT URGENT 25 TREAT MINUTES OFFICE 44746 YESSICA FABIANO OUTPATIEN 6 6 [facility] T VISIT URGENT 25 TREAT MINUTES HOSPITAL BO - 6 6 MEM [facility] OUTPATIEN INC T EMERGENCY 27163 JAMA OROSCO 6 6 PHYSICIAN IRENA [facility] T VISIT HIGH/URGE NT SEVERITY EMERGENCY 59333 BO 6 6 MEM HOSP DEPARTMEN INC T VISIT MODERATE SEVERITY OFFICE 94564 YESSICA MARIO OUTPATIEN 6 6 [facility] T VISIT URGENT 25 TREAT MINUTES EMERGENCY 82116 BO 6 6 MEM HOSP DEPARTMEN INC T VISIT LOW/MODER SEVERITY EMERGENCY 20278 JAMA ETIENNE 6 6 PHYSICIAN MADI [facility] T VISIT MODERATE SEVERITY HOSPITAL BO - 6 6 [facility] OUTPATI[facility] INC T EMERGENCY 10516 BO 6 6 [facility] DEPARTMEN INC T VISIT MODERATE SEVERITY HOSPITAL BO - 6 6 [facility] OUTPATIEN INC T EMERGENCY 90132 JAMA ETIENNE DEPT 6 6 PHYSICIAN MADI WORRELL [facility] HIGH SEVERITY& THREAT [facility] BO - 6 6 [facility] OUTPATIEN INC T EMERGENCY [address] [facility] DEPARTMEN INC T VISIT MODERATE SEVERITY EMERGENCY 31374 JAMA DURANT 6 6 PHYSICIAN SHELBY [facility] T VISIT HIGH/URGE NT SEVERITY HOSPITAL BO - 6 6 [facility] OUTPATIEN INC T OFFICE 51209 MIKEY MAYBERRY [facility] 6 6 MD LEIGH ANN, T VISIT PSC 15 MINUTES OFFICE 27314 BO GUERRERO 6 6 [facility] T VISIT INC 10 MINUTES HOSPITAL BO - 6 6 MEM [facility] OUTPATIEN INC T OFFICE 49153 MIKEY DUQUE OUTPATIEN 6 6 MD LEIGH ANN, T VISIT PSC 15 MINUTES [facility] BO - 6 6 MEM HOS[facility] OUTPATIEN INC T OFFICE 88598 BO OUTPATIEN 6 6 MEM HOSP T VISIT INC 10 MINUTES OFFICE 41567 [facility] T VISIT URGENT 25 TREAT MINUTES EMERGENCY 23670 [facility] DEPT 5 5 [place] SCO VISIT EMERGENCY HIGH PHYS SEVERITY& THREAT [facility] BO - 5 5 MEM HOSP OUTPATIEN INC T OFFICE 71088 [facility] T VISIT INC 10 MINUTES OFFICE 58999 MIKEY DUQUE OUTPATIEN 5 5 MD LEIGH ANN, T NEW 30 PSC MINUTES OFFICE 68309 [facility] 5 [facility] T VISIT URGENT 15 TREAT MINUTES OFFICE [address] [facility] 5 5 [facility] T VISIT URGENT 25 TREAT MINUTES [facility] - 5 5 Y [facility] T OFFICE 14711 [facility] CONSULT 5 5 [place] LEANN ION PHYSICIAN NEW/ESTAB S ASSIST PATIENT 40 MIN OFFICE 62202 [facility] 5 5 Y T VISIT 5 HOSPITAL MINUTES EMERGENCY [address] [place] [address] [facility] T VISIT HIGH/URGE NT SEVERITY [facility] 5 [facility] T EMERGENCY 26348 [facility] DEPT 5 5 [place] VISIT EMERGENCY HIGH PHYS SEVERITY& [facility] T OFFICE 59088 YESSICA STEELEPATIEN 5 5 [facility] T VISIT URGENT 15 TREAT MINUTES OFFICE 15837 [facility] 5 [facility] T VISIT URGENT 25 TREAT MINUTES HOSPITAL [facility] - 5 5 [facility] T EMERGENCY 57654 [facility] CELLARO 5 5 [facility] EMERGENCY PAT T VISIT PHYS HIGH/URGE NT SEVERITY HOSPITAL [facility] - 5 5 [facility] HOSPITAL MEDANALES - 5 5 [facility] T OFFICE 86971 [facility] 5 5 [facility] T VISIT URGENT 25 TREAT MINUTES OFFICE 82836 [facility] 5 5 [facility] T VISIT URGENT 25 TREAT MINUTES HOSPITAL BO - 5 5 MEM H[facility] OUTPATIEN INC T HOSPITAL BO [facility] 5 5 [facility] 41499 [facility] 5 [facility] T VISIT URGENT 25 TREAT MINUTES OFFICE 89718 YESSICA STEELEPATIEN 5 5 [facility] T VISIT URGENT 25 TREAT MINUTES OFFICE 63667 YESSICA MARIO OUTPATIEN 5 5 [facility] T VISIT URGENT 25 TREAT MINUTES OFFICE 71740 YESSICA STEELEPATIEN 5 5 [facility] T VISIT URGENT 15 TREAT MINUTES HOSPITAL BO - 5 5 MEM HOSP OUTPATIEN INC T OFFICE 06987 [facility] 5 5 ADULT NANCI T VISIT PRIMARY 15 CARE CLI MINUTES [facility] - 5 5 [facility] T OFFICE 03787 [facility] OUTPATIEN 4 4 ADULT NANCI T VISIT PRIMARY 25 CARE CLI [facility] - [address] [facility] T OFFICE 18510 [facility] OUTPATIEN 4 4 ADULT NANCI T VISIT PRIMARY 15 CARE CLI MINUTES [facility] 4 4 HOSPITAL OFFICE 42398 [facility] OUTPATIEN 4 4 Y T VISIT 5 HOSPITAL MINUTES OFFICE 23809 [facility] OUTPATIEN 4 4 JAM JAM T VISIT 15 MINUTES HOSPITAL [facility] - 4 4 Y [facility] HOSPITAL [place] - 4 4 [facility] EMERGENCY 32712 [facility] DEPT 4 4 TEX TEX VISIT HIGH SEVERITY& THREAT [facility] EMERGENCY 15318 [facility] 4 4 Y [facility] T VISIT HIGH/URGE NT SEVERITY [facility] - 4 4 Y [facility] T EMERGENCY 54069 [facility] DEPT 4 4 [place] TEX VISIT EMERGENCY HIGH PHYSI SEVERITY& THREAT [facility] UN[facility]ERS[facility] - 4 4 Y [facility] T OFFICE 55698 [facility] OUTPATIEN 4 4 Y T VISIT 5 HOSPITAL MINUTES OFFICE 51068 JAGUAR JAGUAR [facility] 4 4 THAD[facility] T VISIT 15 MINUTES HOSPITAL [facility] - 4 4 Y [facility] T OFFICE 19103 [facility] OUTPATIEN 4 4 Y T VISIT 5 HOSPITAL MINUTES
--- OUTSIDE RECORDS SUMMARY | 2016-11-12 22:50 | External Medical Summary Rpt ---
Demographics Preferred Language Swazi Marital Status Unknown Oriental Orthodox Affiliation Unknown Race Unknown Ethnic Group Unknown Author Author , Organization [employer] Address Unknown Phone Unavailable Purpose Continuity of Care Document - through 2016 Immunization No patient found.
--- OUTSIDE RECORDS SUMMARY | 2016-11-12 22:50 | External Medical Summary Rpt ---
Demographics Preferred Language Sierra Leonean Marital Status Unknown Sikh Affiliation Unknown Race Unknown Ethnic Group Unknown Author Author , Organization [employer] Address Unknown Phone Unavailable Purpose Continuity of Care Document - through 2016 Immunization No patient found.
--- NOTE | 2016-11-12 23:05 | Emergency Room Report ---
History of Present Illness Time Seen by [id number] Presenting Problem in Triage Pt arrived:Walked Presenting Problem:C/O RIGHT GROIN PAIN WITH RADIATION TO KNEE. RIGHT KNEE IS SWOLLEN AND HAS DIFFICUL;TY WITH AMBULATION. Onset of symptoms date/time:/ or onset unknown for:MEDICAL HX UNKNOWN Treatment Prior to Arrival: WAS SEEN IN OFFICE BY DR DURANT MICROFILMER Provided by: PHYSICIAN Sepsis Risk Assessment: Temp: 98.3 B/P: 129/90 MAP: 103 Pulse: 67 Resp: 18 Recent fever? N Clinical Suspician of Infection? N Mental Status: 1 - Regular (Normal Baseline) Sepsis Risk:Low Sepsis Risk Have you (or family members/close friends) recently traveled outside the [place]? N If Yes, where/when: Have you had exposure to infectious disease within the past month? N TB? Other? Specify: Source patient, RN notes reviewed, family, old records Exam Limitations no limitations Comment over the last few days rt hip pain and rt groin pain w/o fever/rash or trauma with no gu sx and has hx of back pain Cardiac Chest Pain Chest pain indicative of cardiac No Timing/Duration this evening Severity moderate ALLERGIES Coded Allergies: sulfamethoxazole (From [facility]) (08/08/15) trimethoprim (From [facility]) (08/08/15) Home Medications Reported Medications ASPIRIN (Aspirin) 81 MG PO DAILY HYDROCODONE/ACETAMINOPHEN ([place] 5-325 Tablet) 7.5 mg PO TID LISINOPRIL (Lisinopril) 10 MG PO DAILY Gabapentin 900 MG PO TID CITALOPRAM HYDROBROMIDE (Citalopram HBr) 40 MG PO DAILY Simvastatin (Zocor) 20 MG PO DAILY Pantoprazole Sodium (Pantoprazole 40MG) 40 MG PO DAILY History Medical History General CAD? No Angina: Yes [place]: No Hypertension? Yes Hyperlipidemia? Yes CHF? No DVT? Yes PE? No COPD? No Asthma? No Anemia? No GERD? Yes Gastric ulcers? No GI Bleed? No Hernia? No Thyroid Problems? No Hypothyroidism? No CVA? No Seizures? No Diabetes? No Renal Insuffiency? No End Stage Renal Disease? No UTI? No Stones? Yes BPH? Yes GB Disease: No Nephritic Syndrome? No Asplenia? No Hepatitis? No Sickle Cell Disease? No Arthritis? Yes Migraines? No Cataracts? No Glaucoma? No MRSA? No HIV? No TB? No Anxiety? No Depression? No Cancer? No More? Yes Additional hx: HERNIATED DISC, DDD OSTEOARTHITIS Immunization Hx DT/Tetanus UNKNOWN Flu REFUSES Pneumonia REFUSES Surgical Hx Previous Surgery?Y LITHOTRIPSY GALLBLADDER Family History Family Hx Diabetes No CAD No Hypertension Yes Hyperlipidemia No Cancer No TB No Social History Smoking Hx Smoker: Never Smoker Tobacco: No Packs/day N/A Alcohol Alcohol: No Drugs none Review of Systems All Other Systems Reviewed and Negative Constitutional denies fever Eyes denies drainage ENT denies: ear pain, epistaxis, throat pain. Respiratory denies cough, denies shortness of breath, denies wheezing Cardiovascular denies chest pain, denies syncope Gastrointestinal denies abdominal pain, denies diarrhea, denies vomiting Genitourinary denies: dysuria, frequency, hesitancy, hematuria. Musculoskeletal see HPI, denies back pain, joint pain, denies joint swelling, denies neck pain Skin denies rash Psychiatric/Neurological denies headache, denies seizure Physical Exam Vital Signs Vital Signs Date Time Temp Pulse Resp B/P Pulse O2 O2 Flow FiO2 Ox Delivery Rate 11/12 2350 18 11/12 2345 98.3 63 18 131/83 97 11/12 2218 98.3 67 18 129/90 97 - WBC >12,000 or <4,000 or 10% bands? 2 or more SIRS Criteria Met? B/P:131/83 MAP:103 Creatinine >2.0? UA output<0.5ml/kg/hr for 2 hrs? Platelet count >100,000? Lactate >2.0mmol/1? INR >1.2 or PTT > than 60 sec? Evidence of Organ Dysfunction? Provider documented clinical suspician of infection? N Sepsis Criteria Count: 0N Sepsis Risk: Low Sepsis Risk General Appearance no apparent distress Eye Exam - bilateral eye PERRL, bilateral eye EOMI Ear, Nose, Throat normal ENT inspection Neck supple Respiratory Status No: respiratory distress. Cardiovascular regular rate/rhythm Peripheral Pulses Pulses normal Yes Gastrointestinal soft Extremities normal inspection, pelvis stable Strength 4 Upper Ext (L), 4 Upper Ext (R), 4 Lower Ext (L), 4 Lower Ext (R) Male Genitalia normal genitalia, no hernia Neurologic alert, professional services specialist II-XII nml as tested Reflexes Reflexes normal No Mental status normal mood/affect Skin no rash cons.w/shingles Lymphatic no adenopathy Medical Decision Making LABS/Meds/Orders Pt receiving controlled substance in ED? No Results/Orders Laboratory Tests 11/12/160: Sodium 142, Potassium 3.8, Chloride 105, Carbon Dioxide 29, BUN 16, Creatinine 1.1, Estimated Creat Clear 116, Estimated GFR (MDRD) 71, Glucose 101, Calcium 9.3, Total Bilirubin 0.3, AST 17, ALT 29, Alkaline Phosphatase 75, Total Protein 7.9, Albumin 4.0, Globulin 3.9 H, Albumin/Globulin Ratio 1.0 L, WBC 5.2, RBC 4.29 L, Hgb 13.5 L, Hct 39.8 L, MCV 92.6, RDW 13.7, Plt Count 259, MPV 7.2 L , Gran % 61.9, Gran # 3.2, Lymphocytes % 29.1, Monocytes % 5.5, Eosinophils % 2.8, Basophils % 0.7, Lymphocytes # 1.5, Monocytes # 0.3, Eosinophils # 0.2, Basophils # 0.0, PUBS MCHC 33.7, ESR 13, MCH 31.2, Urine Color YELLOW, Urine Appearance CLEAR, Urine pH 7.0, Ur Specific [place] 1.015, Urine Protein NEGATIVE, Urine Ketones NEGATIVE, Urine Blood NEGATIVE, Urine Nitrate NEGATIVE, Urine Bilirubin NEGATIVE, Urine Urobilinogen 4.0, Ur Leukocyte Esterase NEGATIVE , Urine WBC OCC, Ur Squamous Epith Cells OCC, Urine Bacteria TRACE, Urine Glucose NEGATIVE Current Medication Orders Sig/Michael Start time Last Medication Dose Route Stop Time Status Admin Ketorolac 0 .STK-MED ONE 11/13 2347 DC Tromethamine .ROUTE Methylprednisolone 0 .STK-MED ONE 11/13 2347 DC Sodium Succinate .ROUTE Ketorolac 30 MG ONCE ONE 11/12 2344 DC 11/12 Tromethamine IV 11/12 2345 2350 Methylprednisolone 125 MG ONCE ONE 11/12 2344 DC 11/12 Sodium Succinate IV 11/12 2345 2350 Sodium Chloride 10 ML PRN PRN 11/12 2315 AC IV 11/13 2305 Orders Procedure Date/time Status HIP RT 2-3V W/PELVIS IF PERFOR 11/12 2305 Active IV SALINE LOCK 11/12 2305 Active URINALYSIS/COMPLETE 11/12 2305 Complete SED RATE 06/20 2306 Complete C-REACTIVE PROTEIN 11/12 2305 Complete COMPLETE METABOLIC PANEL 11/12 2305 Complete CBC WITH AUTO DIFF 11/12 2305 Complete XRAY/CT/US XRAY/CT/US XRAY hip, pelvis XR interpretation by reviewed by me Xray Results no fracture seen Departure Departure Time of Disposition 0011 Disposition DC Home or Self Care(routine) Clinical Impression Primary Impression: Hip pain, right Condition STABLE Referrals Olivia DON,Waldo Leon (Family) Patient Instructions DI for Joint Pain Additional Instructions will refer to ortho for eval and trial of prednisone Discharge Counseling Counseled pt/family regarding diagnosis, test results, medications/RX, follow up needs Prescriptions Current Visit Scripts Prednisone (Prednisone 20MG) 20 MG PO BID #10 TAB ED Critical Care Critical Care No at 0013
[2016-11-12 23:24] LABS: LYMPH # 1.5 K/mm3 (0.7-4.5); LYMPH % 29.1 % (10-50)
[2016-11-12 23:26] LABS: HEMOGLOBIN 13.5 g/dL (14.1-18.0)
[2016-11-12 23:29] LABS: URINE BILIRUBIN - DIPSTICK NEGATIVE (NEG); URINE BLOOD NEGATIVE (NEG)
[2016-11-12 23:34] LABS: URINE SQUAMOUS CELLS OCC #/hpf (OCC)
[2016-11-13] MEDS ORDERED: PREDNISONE 20MG20 MG PO (00:13)
[2016-11-13 00:24] VITALS: BP 140/70
--- NOTE | 2016-11-13 08:31 | RADIOLOGY REPORT PS360 ---
HIP RT 2-3V W/PELVIS IF PERFOR Ordering Physician: Danyel Baker MD Patient Age: 51 years: Male HISTORY: hip pain right hip pain no trauma TECHNIQUE: 2 view right hip with AP pelvis COMPARISON is made to CT abdomen pelvis August 2015 and July 2012. FINDINGS Right hip is intact with no fracture. No acute findings. No hip or pelvic fracture. Hip joint spaces well-maintained only borderline narrowing at the superior right hip.. Right femoral head and neck are intact. I would note that there is a somewhat pistol-manager human capital configuration at the femoral neck which could give rise to to femoral acetabular impingement symptoms if present-does patient's pain increases with with abduction? If so consider orthopedic follow-up. 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 SI joints remain patent but there are some scattered sclerotic changes about them a which may reflect early degenerative changes here. Unimpressive but noted. Left hip appears intact. IMPRESSION...... No acute findings. No fracture. Stable right hip versus previous CT study 2015 2012 Perhaps Scant. Early degenerative changes anterior right hip joint most evident on on prior CT CTs Also note Configuration of femoral head/neck] could lead itself to femoral acetabular impingement symptoms if present . .
== END 2016-11-13 00:25 | disposition home or self-care (01) ==
LOC: ER 22:16
PROVIDERS: Emergency Medicine
DX: M25.551 Pain in right hip (principal); I10 Essential (primary) hypertension; K21.9 Gastro-esophageal reflux disease without esophagitis

== ENCOUNTER → 2016-12-06 | Outpatient (CLI) | payer MEDICAID ==
[~2016-12-06] MED LIST changes: +PREDNISONE 20MG20 MG PO
[2016-12-06 16:37] LABS: AMPHETAMINES/METAMPHETAMINES NEGATIVE ng/mL (<1000)
== END ==
LOC: LAB 15:51
PROVIDERS: Emergency Medicine
DX: Z79.899 Other long term (current) drug therapy (principal)

== ENCOUNTER → 2017-02-24 | Outpatient (CLI) | payer MEDICAID ==
[2017-02-24 14:54] LABS: AMPHETAMINES/METAMPHETAMINES NEGATIVE ng/mL (<1000)
== END ==
LOC: LAB 14:08
PROVIDERS: Emergency Medicine
DX: Z79.899 Other long term (current) drug therapy (principal)

== ENCOUNTER → 2017-03-31 | Outpatient (CLI) | payer MEDICAID ==
[2017-03-31 22:07] LABS: AMPHETAMINES/METAMPHETAMINES NEGATIVE ng/mL (<1000)
== END ==
LOC: LAB 15:36
PROVIDERS: Emergency Medicine
DX: Z79.899 Other long term (current) drug therapy (principal)